=== PATIENT | female | born 1955 | race Caucasian/White ===

== ENCOUNTER 2018-07-14 17:14 | Emergency (ER) | payer OTHER ==
[2018-07-14] MEDS ORDERED: IBUPROFEN 600 MG TAB PO ONE (18:06)
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
[2018-07-14 19:21] VITALS: BP 150/86
[2018-07-14] MEDS ORDERED: DIAZEPAM 5 MG TAB PO ONE (19:33)
[2018-07-14] MEDS ORDERED: DIAZEPAM 5 MG TAB ONE (19:33)
== END 2018-07-14 20:02 | disposition home or self-care (01) ==
DX: S06.0X0A Concussion without loss of consciousness, initial encounter (principal); S16.1XXA Strain of muscle, fascia and tendon at neck level, initial encounter; V49.49XA Driver injured in collision with other motor vehicles in traffic accident, initial encounter; Y92.410 Unspecified street and highway as the place of occurrence of the external cause